=== PATIENT | male | born 1965 | race Caucasian/White ===

== ENCOUNTER 2017-06-09 09:37 | Emergency (ER) | payer OTHER | END 2017-06-09 13:03 | disposition left against medical advice (07) | LOC: E/R 09:37 | DX: M25.532 Pain in left wrist (principal) | CPT/HCPCS: 29125; 73110-LT; 99283-25 ==

== ENCOUNTER 2017-08-20 07:08 | Day surgery (SDC) | payer OTHER ==
[2017-08-20] MEDS ORDERED: FENTAnyl 50 MCG/ML VIAL (09:30)
[2017-08-20] MEDS ORDERED: MIDAZOLAM 1 MG/ML 2 ML INJ ×3 (09:30)
== END 2017-08-20 10:16 | disposition home or self-care (01) ==
LOC: GIL 07:08
DX: D12.3 Benign neoplasm of transverse colon (principal); K64.8 Other hemorrhoids; I10 Essential (primary) hypertension
CPT/HCPCS: 45385; 88305

== ENCOUNTER 2018-08-19 15:28 | Day surgery (SDC) | payer OTHER ==
[~2018-08-19 15:28] MED LIST: CEFAZOLIN 2 GM/50 ML (PMX) 50 ML IVPB
[2018-08-19] MEDS: LACTATED RINGER'S 1,000 ML (ENTER RATE) IV (15:59)
[2018-08-19] MEDS ORDERED: ONDANSETRON 4 MG INJ IV (17:00)
[2018-08-19] MEDS ORDERED: MEPERIDINE 25 MG INJ IV (17:00)
[2018-08-19] MEDS ORDERED: DIPHENHYDRAMINE 50 MG INJ IV (17:00)
[2018-08-19] MEDS ORDERED: HYDROmorphONE 1 MG/5 ML IV SYRINGE IV ×3 (17:00)
[2018-08-19] MEDS ORDERED: METOCLOPRAMIDE 10 MG INJ IV (17:00)
[2018-08-19] MEDS ORDERED: ALBUTEROL 0.083% (NEB) 2.5 MG/3 ML AMP HHN (17:00)
[2018-08-19] MEDS ORDERED: FENTAnyl 50 MCG/ML VIAL IV ×2 (17:00)
[2018-08-19] MEDS ORDERED: FENTAnyl 50 MCG/ML VIAL (17:53)
[2018-08-19] MEDS ORDERED: MIDAZOLAM 1 MG/ML 2 ML INJ (17:58)
[2018-08-19] MEDS: BUPIVACAINE 0.5% (SDV) 30 ML INJ (18:06)
== END 2018-08-19 19:45 | disposition home or self-care (01) ==
LOC: SDS 15:28
DX: S56.41 Strain of extensor muscle, fascia and tendon of other and unspecified finger at forearm level (principal); X58.XXXD Exposure to other specified factors, subsequent encounter; M25.742 Osteophyte, left hand; I10 Essential (primary) hypertension; E78.5 Hyperlipidemia, unspecified
CPT/HCPCS: 26418

== ENCOUNTER 2018-11-11 15:03 | Emergency (ER) | payer OTHER ==
[2018-11-11] MEDS: KETOROLAC 30 MG INJ IM (16:53)
== END 2018-11-11 18:03 | disposition home or self-care (01) ==
LOC: FTE 15:03
DX: M13.811 Other specified arthritis, right shoulder (principal); I10 Essential (primary) hypertension
CPT/HCPCS: 73030; 73030-RT; 96372; 99284-25